=== PATIENT | male | born 1990 | race American Indian/Alaskan Native ===

== ENCOUNTER 2018-07-15 05:09 | Emergency (ER) | payer OTHER ==
[2018-07-15 05:17] VITALS: BP 164/109
[2018-07-15] MEDS ORDERED: PROVENTIL IH ONE ×2 (05:22→05:24)
--- NOTE | 2018-07-15 08:25 | Emergency Department Report ---
ED Shortness of Breath HPI - General Chief Complaint: Dyspnea/Respdistress Stated Complaint: DARLENE Time Seen by Provider: 07/15/18 08:19 Source: patient Mode of arrival: Ambulatory Limitations: No Limitations - History of Present Illness Initial Comments: Patient is 28 years old male with a remote history of asthma when he was a child. Patient stated that last asthma attack was 12 years ago. Patient presented to the ER complaining of shortness of breath and wheezing for the last 5 days. Patient denied any fever or cough. No chest pain. Patient also found to have a blood pressure of 164/109. Patient stated that he was never been diagnosed with high blood pressure before. MD Complaint: shortness of breath -: days(s) - Related Data Previous Rx's Medication Instructions Recorded Last Taken Type Acetaminophen/Codeine [Tylenol #3] 1 tab PO Q6H PRN #20 tab 02/21/15 Unknown Rx Amoxicillin [Amoxicillin TAB] 875 mg PO BID #20 tablet 02/21/15 Unknown Rx Allergies Allergy/AdvReac Type Severity Reaction Status Date / Time No Known Allergies Allergy Verified 07/15/18 05:29 ED Review of Systems ROS: Stated complaint: DARLENE Other details as noted in HPI Comment: All other systems reviewed and negative Constitutional: denies: chills, fever Respiratory: shortness of breath, SOB with exertion, SOB at rest, wheezing. denies: cough, orthopnea Cardiovascular: denies: chest pain, palpitations Gastrointestinal: denies: abdominal pain, nausea, vomiting Musculoskeletal: denies: back pain Neurological: denies: headache, weakness, numbness, paresthesias, confusion ED Past Medical Hx - Past Medical History Previous Medical History?: Yes Hx Asthma: Yes - Surgical History Past Surgical History?: No - Social History Smoking Status: Current Every Day Smoker Substance Use Type: None - Medications Home Medications: Home Medications Medication Instructions Recorded Confirmed Last Taken Type Acetaminophen/Codeine [Tylenol #3] 1 tab PO Q6H PRN #20 tab 02/21/15 Unknown Rx Amoxicillin [Amoxicillin TAB] 875 mg PO BID #20 tablet 02/21/15 Unknown Rx ED Physical Exam - General Limitations: No Limitations General appearance: alert, in no apparent distress - Head Head exam: Present: atraumatic, normocephalic, normal inspection - Eye Eye exam: Present: normal appearance - ENT ENT exam: Present: normal exam, normal orophraynx, mucous membranes moist - Neck Neck exam: Present: normal inspection, full ROM. Absent: tenderness, meningismus, lymphadenopathy, thyromegaly - Respiratory Respiratory exam: Present: wheezes. Absent: respiratory distress, rales, rhonch i, stridor, accessory muscle use, decreased breath sounds, prolonged expiratory - Cardiovascular Cardiovascular Exam: Present: regular rate, normal rhythm, normal heart sounds - GI/Abdominal GI/Abdominal exam: Present: soft, normal bowel sounds. Absent: distended, tenderness, guarding, rebound, rigid, organomegaly, mass, bruit, pulsatile mass - Extremities Exam Extremities exam: Present: normal inspection, full ROM - Neurological Exam Neurological exam: Present: alert, oriented X3, CN II-XII intact, normal gait, reflexes normal - Skin Skin exam: Present: warm, intact, normal color ED Course Vital Signs 07/15/18 05:14 Temperature 98.6 F Pulse Rate 107 H Respiratory 16 Rate Blood Pressure 164/109 [Right] O2 Sat by Pulse 99 Oximetry ED Medical Decision Making - Lab Data Result diagrams: 07/15/18 08:27 07/15/18 08:27 - Medical Decision Making Patient is 28 years old male with a remote history of asthma when he was a child. Patient stated that last asthma attack was 12 years ago. Patient presented to the ER complaining of shortness of breath and wheezing for the last 5 days. Patient denied any fever or cough. No chest pain. Patient also found to have a blood pressure of 164/109. Patient stated that he was never been di agnosed with high blood pressure before. Patient received albuterol 5 mg. Patient stated that he is feeling much better. Labs reviewed and is unremarkable. Patient is started on prednisone pack. Prescribed albuterol MDI and hydrochlorothiazide and given patient [facility] for follow-up. Critical care attestation.: If time is entered above; I have spent that time in minutes in the direct care of this critically ill patient, excluding procedure time. ED Disposition Clinical Impression: Asthma exacerbation, Hypertension Disposition: - TO HOME OR SELFCARE Is pt being admited?: No Condition: Stable Instructions: Hypertension (ED), Asthma (ED) [facility] - [facility]-5 Days
[2018-07-15 08:35] LABS: Basophils # (Auto) 0.1 K/mm3 (0.0-0.1); Basophils % (Auto) 0.5 % (0.0-1.8); Eosinophils # (Auto) 0.2 K/mm3 (0.0-0.4); Eosinophils % (Auto) 1.8 % (0.0-4.3); Hematocrit 42.4 % (35.5-45.6); Hemoglobin 14.1 gm/dl (11.8-15.2); Lymphocytes # (Auto) 2.4 K/mm3 (1.2-5.4); Mean Corpuscular HGB Conc 33 % (32-34); Mean Corpuscular Volume 86 fl (84-94); Monocytes # (Auto) 0.6 K/mm3 (0.0-0.8); Monocytes % (Auto) 5.1 % (0.0-7.3); Platelet Count 177 K/mm3 (140-440); Red Blood Count 4.94 M/mm3 (3.65-5.03); Red Cell Distribution Width 13.8 % (13.2-15.2)
[2018-07-15 09:00] LABS: BUN/Creatinine Ratio 9; Blood Urea Nitrogen 8 mg/dL (9-20); Calcium 9.7 mg/dL (8.4-10.2); Hemolysis Index 138
== END 2018-07-15 09:53 | disposition home or self-care (01) ==
LOC: ED 05:09
DX: J45.901 Unspecified asthma with (acute) exacerbation (principal); I10 Essential (primary) hypertension; F17.200 Nicotine dependence, unspecified, uncomplicated; Z79.899 Other long term (current) drug therapy
CPT/HCPCS: 36415; 80048; 83880; 85025; 99283

== ENCOUNTER 2020-09-22 12:15 | Emergency (ER) | payer SELFPAY ==
[2020-09-22 12:20] VITALS: BP 134/77
--- NOTE | 2020-09-22 12:56 | Emergency Department Report ---
ED Eye Problem HPI - General Chief complaint: Eye Problems Stated complaint: LT EYE ISSUE Time Seen by Provider: 09/22/20 12:44 Source: patient Mode of arrival: Ambulatory Limitations: No Limitations - History of Present Illness Initial comments: Patient is a 30-year-old male who presents emergency room complaints of left eye irritation that began last night. He states once the irritation began he removed his contact lenses. He denies anything getting into the eye that he is aware of. He denies any vision changes. He denies anyone else with the same thing. He states it has been frequently having drainage including water and mucus. No past medical history. No allergies to medications. - Related Data Previous Rx's Medication Instructions Recorded Last Taken Type Acetaminophen/Codeine [Tylenol #3] 1 tab PO Q6H PRN #20 tab 02/21/15 Unknown Rx Amoxicillin [Amoxicillin TAB] 875 mg PO BID #20 tablet 02/21/15 Unknown Rx Prednisone [predniSONE 10 mg 10 mg PO .TAPER #1 tab.ds.pk 07/15/18 Unknown Rx (6-Day Pack, 21 Tabs)] hydroCHLOROthiazide [HCTZ] 25 mg PO QDAY #30 tablet 07/15/18 Unknown Rx Albuterol Mdi (or & Nicu Only) 2 puff IH QID PRN #1 inhalation 08/05/18 Unknown Rx [ProAir HFA Inhaler] Azithromycin [Zithromax Z-TAMIKO] 250 mg PO DAILY #6 tab 08/05/18 Unknown Rx Benzonatate [Tessalon Perles] 100 mg PO Q8HR #30 capsule 08/05/18 Unknown Rx Ibuprofen [Motrin 800 MG tab] 800 mg PO Q8HR PRN #30 tablet 08/05/18 Unknown Rx dexAMETHasone [Decadron] 4 mg PO BID 3 Days #6 tablet 08/05/18 Unknown Rx Ofloxacin 0.3% [Ocuflox 0.3% opth] 1 - 2 drops OS DAILY 7 Days #1 09/22/20 Unknown Rx bottle Allergies Allergy/AdvReac Type Severity Reaction Status Date / Time No Known Allergies Allergy Verified 07/15/18 05:29 ED Review of Systems ROS: Stated complaint: LT EYE ISSUE Other details as noted in HPI Comment: All other systems reviewed and negative ED Past Medical Hx - Past Medical History Previous Medical History?: Yes Hx Asthma: Yes - Surgical History Past Surgical History?: No - Social History Smoking Status: Current Every Day Smoker Substance Use Type: None - Medications Home Medications: Home Medications Medication Instructions Recorded Confirmed Last Taken Type Acetaminophen/Codeine [Tylenol #3] 1 tab PO Q6H PRN #20 tab 02/21/15 Unknown Rx Amoxicillin [Amoxicillin TAB] 875 mg PO BID #20 tablet 02/21/15 Unknown Rx Prednisone [predniSONE 10 mg 10 mg PO .TAPER #1 tab.ds.pk 07/15/18 Unknown Rx (6-Day Pack, 21 Tabs)] hydroCHLOROthiazide [HCTZ] 25 mg PO QDAY #30 tablet 07/15/18 Unknown Rx Albuterol Mdi (or & Nicu Only) 2 puff IH QID PRN #1 inhalation 08/05/18 Unknown Rx [ProAir HFA Inhaler] Azithromycin [Zithromax Z-TAMIKO] 250 mg PO DAILY #6 tab 08/05/18 Unknown Rx Benzonatate [Tessalon Perles] 100 mg PO Q8HR #30 capsule 08/05/18 Unknown Rx Ibuprofen [Motrin 800 MG tab] 800 mg PO Q8HR PRN #30 tablet 08/05/18 Unknown Rx dexAMETHasone [Decadron] 4 mg PO BID 3 Days #6 tablet 08/05/18 Unknown Rx Ofloxacin 0.3% [Ocuflox 0.3% opth] 1 - 2 drops OS DAILY 7 Days #1 09/22/20 Unknown Rx bottle ED Physical Exam - General Limitations: No Limitations General appearance: alert, in no apparent distress - Head Head exam: Present: atraumatic, normocephalic - Eye Eye exam: Present: PERRL, EOMI, conjunctival injection (left). Absent: periorbital swelling, periorbital tenderness - ENT ENT exam: Present: mucous membranes moist - Respiratory Respiratory exam: Absent: respiratory distress, accessory muscle use - Neurological Exam Neurological exam: Present: alert, oriented X3 - Psychiatric Psychiatric exam: Present: normal affect, normal mood - Skin Skin exam: Present: warm, dry, intact ED Course Vital Signs 09/22/20 12:19 Temperature 98.6 F Pulse Rate 64 Respiratory 18 Rate Blood Pressure 134/77 O2 Sat by Pulse 100 Oximetry ED Medical Decision Making - Medical Decision Making Patient is a 30-year-old male who presents emergency room complaints of left eye irritation that began last night. He states once the irritation began he removed his contact lenses. He denies anything getting into the eye that he is aware of. He denies any vision changes. He denies anyone else with the same thing. He states it has been frequently having drainage including water and mucus. No past medical history. No allergies to medications. Vitals are stable. On exam: Left conjunctival injection, no periorbital edema, erythema or tenderness palpation, EOMI, PERRLA. Examination present was consistent with conjunctivitis. Given that patient is a contact lens wearer, patient given prescription for ofloxacin. Advised patientplease use medication as prescribed. follow up with an eye doctor if symptoms are not improving. return to the emergency room for any new or worsening symptoms. advised patient to not place contact lens in the eye until conjunctivitis has completely resolved Critical care attestation.: If time is entered above; I have spent that time in minutes in the direct care of this critically ill patient, excluding procedure time. ED Disposition Clinical Impression: Conjunctivitis Qualifiers: Conjunctivitis type: acute Acute conjunctivitis type: unspecified Laterality: left Qualified Code(s): H10.32 - Unspecified acute conjunctivitis, left eye Disposition: DC-01 TO HOME OR SELFCARE Is pt being admited?: No Does the pt Need Aspirin: No Condition: Stable Instructions: Viral Conjunctivitis, Adult, Bacterial Conjunctivitis, Adult Additional Instructions: please use medication as prescribed. follow up with an eye doctor if symptoms are not improving. return to the emergency room for any new or worsening symptoms. Prescriptions: Ofloxacin 0.3% [Ocuflox 0.3% opth] 1 - 2 drops OS DAILY 7 Days #1 bottle Referrals: NABILA LITTLE MD [Staff Physician] - 2-3 Days [facility] [Provider Group] - 2-3 Days Time of Disposition: 12:50 Print Language: WOLOF
== END 2020-09-22 13:19 | disposition home or self-care (01) ==
LOC: ED 12:15
DX: H10.9 Unspecified conjunctivitis (principal); J45.909 Unspecified asthma, uncomplicated; F17.200 Nicotine dependence, unspecified, uncomplicated; Z79.899 Other long term (current) drug therapy
CPT/HCPCS: 99281